=== PATIENT | male | born 1960 | race Caucasian/White ===

== ENCOUNTER 2018-09-08 08:44 | Inpatient (IN) ==
[2018-09-08] MEDS ORDERED: NS 1,000 ML IV ONE (08:56)
[2018-09-08] MEDS ORDERED: SODIUM CHLORIDE 0.9% INJ ONE (08:59)
[2018-09-08] MEDS ORDERED: PROTONIX IV ONE (08:59)
--- NOTE | 2018-09-08 08:59 | PROVIDER DOCUMENTATION ---
HPI-Abdominal Pain/GI Problem - General Chief Complaint: GI Bleed Stated Complaint: vomiting blood Time Seen by Provider: 09/08/18 08:55 Source: patient Allergies/Adverse Reactions: Patient Allergies Allergy/AdvReac Type Severity Reaction Status Date / Time No Known Allergies Allergy Verified 09/08/18 08:48 Home Medications: Home Medication List Medication Instructions Recorded Confirmed Last Taken Type NK [No Home Medications] 09/08/18 09/08/18 Unknown History - History of Present Illness-ABD Nature of Presenting Problems: 58 YOM PRESENTS WITH C/O VOMITING BLOOD X 2. HE REPORTS THE FIRST TIME IT WAS APPROX 1 CUP AND THE SECOND IT WAS MUCH LESS. HE DENIES DIZZINESS, CP, ABDOMINAL PAIN. HE DOES REPORTS ETOH INTAKE OF APROX 7-8 BEERS AND "A FEW SHOTS" PER DAY Onset/Duration: reports: 4-6 hours ago Timing: reports: intermittent Activities at Onset: reports: none Modifying Factors: improves with: nothing Associated Symptoms: reports: denies symptoms # of Vomiting Episodes: 2 Emesis Description: reports: red blood Bruising or Bleeding Gums?: No Similar Symptoms Previously?: No Recently seen or treated by another doctor?: No Review of Systems - Adult - REVIEW OF SYSTEMS - ADULT Constitutional: reports: no symptoms reported. denies: see HPI, chills, fever, fatique, night sweats, weight gain, weight loss, other Eyes: reports: no symptoms reported. denies: see HPI, discharge, dry eyes, decreased vision, blurred vision, double vision, eye pain, redness, other Ears, Nose, Mouth & Throat: reports: no symptoms reported. denies: see HPI, ear discharge, ear pain, hearing loss, tinnitus, epistaxis, sinus problem, nose pain, loose teeth, mouth/dental pain, mouth swelling, hoarseness, throat pain, throat swelling, other Cardiovascular: reports: no symptoms reported. denies: see HPI, chest pain, edema, heart murmur, irregular heart rate, orthopnea, palpitations, poor circulation, PND, syncope, other Respiratory: reports: no symptoms reported. denies: see HPI, chronic cough, cough, dyspnea on exertion, excessive sputum production, hemoptysis, pleurisy, shortness of breath, wheezing, other Gastrointestinal: reports: hematemesis, nausea, vomiting. denies: no symptoms reported, see HPI, abdominal pain, constipation, diarrhea, difficulty swallowing, frequent heartburn, poor appetite, rectal bleeding, other Genitourinary: reports: no symptoms reported. denies: see HPI, dysuria, discharge, frequency, flank pain, frequent UTI's, hematuria, hesitency, incontinence, urinary retention, urgency, other Musculoskeletal: reports: no symptoms reported. denies: see HPI, bone pain, back pain, frequent leg cramps, joint pain, joint swelling, muscle aches, muscle weakness, neck pain, other Integumentary: reports: no symptoms reported. denies: see HPI, hives, hair loss, itching, mole changes, nail changes, rash, skin sores/ulcer, skin thickening, other Neurological: reports: no symptoms reported. denies: see HPI, ataxia, dizziness/vertigo, headache/migraines, loss of balance, numbness, paresthesia, seizure, slurred speech, syncope, tremors, other Psychiatric: reports: no symptoms reported. denies: see HPI, anxiety, anti- depressant use, alcohol/drug dependence, depression, emotional problems, insomnia, panic attacks, suicidal thoughts, other Endocrine: reports: no symptoms reported. denies: see HPI, change in skin pigment, excessive sweating, goiter, cold intolerance, heat intolerance, in creased hunger, increased thirst, polyuria, other Hematologic/Lymphatic: reports: no symptoms reported. denies: see HPI, blood clots, easy bruising, low blood count, lymphedema, prolonged bleeding, swollen lymph nodes, transfusions, other Allergic/Immunologic: reports: no symptoms reported. denies: see HPI, allergic reactions, allergic rhinitis, asthma, eczema, food allergy, frequent infections, hay fever, hives, positive PPD, urticaria, other Past History - Adult - PAST MEDICAL HISTORY-ADULT Review of Records: reports: Nursing Assessment Review, Medications Reviewed, Social history reviewed & non-contributory. - SOCIAL HISTORY Substance Use: alcohol (7-8 BEERS + 3-4 SHOTS PER DAY) Physical Exam-General - PHYSICAL EXAM-ADULT Initial Vital Signs Reviewed: Yes - CONSTITUTIONAL General Appearance: appears well, alert, no apparent distress - EYES Eyes: PERRL/EOMI, pink conjunctivae - HEAD, EARS, NOSE, MOUTH & THROAT HENMT: normocephalic/atraumatic, moist mucous membranes, normal ENT inspection - NECK Neck: non-tender, full range of motion, supple - RESPIRATORY Respiratory: chest non-tender, lungs clear, normal breath sounds, no pleuratic chest pain, no respiratory distress, no accessory muscle use - CARDIOVASCULAR Cardiovascular: normal peripheral pulses, regular rate, rhythm - GASTROINTESTINAL (ABDOMEN) Abdominal Exam: normal bowel sounds, non tender, soft - LYMPHATIC Lymphatic: no adenopathy - MUSCULOSKELETAL Back Exam: normal inspection, no CVA tenderness, no vertebral tenderness Extremity: normal range of motion, non-tender, normal gait, normal inspection, no pedal edema, no calf tenderness - SKIN Integumentary: normal color, normal turgor, warm/dry - NEUROLOGIC Neurologic: grossly normal - PSYCHIATRIC Psych/Mental Status: normal mood/affect, oriented x 3 Progress - PLAN OF CARE/RESULTS Progress/Plan/Lab Results: Vital Signs - 8 hr 09/08/18 08:46 Temperature 98.4 F Pulse Rate 81 Respiratory Rate 18 Blood Pressure 177/120 O2 Sat by Pulse Oximetry 97 Orders Category Date Time Status Misc. NRSG Communication Order DIRECTED Care 09/08/18 08:56 Ordered CBC WITH ELECTRONIC DIFF [HEME] Stat Lab 09/08/18 08:56 Uncollected COMPREHENSIVE METABOLIC PANEL [CHEM] Stat Lab 09/08/18 08:56 Uncollected PROTIME WITH INR [COAG] Stat Lab 09/08/18 08:56 Uncollected PTT [COAG] Stat Lab 09/08/18 08:56 Uncollected TYPE & SCREEN [BBK] Stat Lab 09/08/18 08:56 Uncollected 0.9% Sodium Chloride Inj [Ns] 1,000 ml Med 09/08/18 08:56 Ordered IV 125 mls/hr Result Diagrams: 09/08/18 09:00 09/08/18 09:00 - REASSESSMENT Reassessment #1 Time Reassessed: 10:33 (DISCUSSED BP 180/114 P 76 WITH MD CANNON TO GIVE CLONIDINE 0.2MG PO) - CONSULTS/PCP/HOSPITALIST Notification #1 *Consult/PCP/Hospitalist*: DR. COHEN Time Discussed: 10:00 Reason/Comments: WILL PLAN FOR EGD ON TUESDAY ADMIT TO DG Consult Disposition: Admit #2 Consult: DR. RAMIREZ Time Discussed: 10:10 Reason/Comments: WILL SEE AND COORDINATE ADMIT TO DG Consult Disposition: Admit Departure - Departure Date of Disposition Decision: 09/08/18 Time of Disposition Decision: 10:20 DIAGNOSIS: Upper GI bleeding Disposition: ADMITTED INPATIENT 09 Certified Medical Emergency: Emergent Condition: Stable Referrals and Follow-Ups: None,PCP [Primary Care Provider] - - Critical Care Note This patient required my direct & personal management of CC.: No Attestation - Physician/ CONI Attestation Patient care was provided by Advanced Practice Provider:: Yes Advanced Practice Provider:: Celina Jeong Advanced Practice Provider documentation review:: The Mid-level provider documentation, treatment plan and medical decision making was reviewed by the physician who agrees with all treatment and medical decision making by the MLP. The physician spent face to face time with patient:: No Advanced Practice Provider documentation review:: Supervising physician onsite and consulted in the evaluation and care of this patient. The physician did not have a face to face encounter with the patient.
[2018-09-08 09:34] LABS: BASO# 0.02 X1000 (0.0-0.2); BASO% 0.5 % (0.0-0.8); EOS# 0.05 X1000 (0.0-0.7); EOS% 1.3 % (0.0-10.0); HEMATOCRIT 39.4 % (42.0-52.0); HEMOGLOBIN 14.1 g/dL (14.0-18.0); IMM GRAN# 0.01 X1000 (0.0-0.04); IMM GRAN% 0.3 % (0.0-0.5); LYMPH# 1.28 X1000 (1.2-3.4); LYMPH% 32.7 % (20.5-51.1); MCH 28.7 PG (27-31); MCHC 35.8 g/dL (33-37); MCV 80.2 FL (81-99); MONO# 0.26 X1000 (0.11-0.59); MONO% 6.6 % (1.7-9.3); MPV 11.6 FL (7.4-10.4); NEUT% 58.6 % (42.2-75.2); PLT 209 X1000 (130-400); RBC 4.91 XMIL (4.7-6.1); RDW 13.5 % (11.5-14.5); WBC 3.92 X1000 (4.8-10.8)
[2018-09-08] MEDS ORDERED: PROTONIX 80 MG in NS 80 ML IV SCH ×2 (09:45→20:00)
[2018-09-08 09:54] LABS: AGAP 12; ALBUMIN 4.4 g/dL (3.5-5.0); ALKALINE PHOSPHATASE 57 U/L (32-122); BUN 11 mg/dL (8-22); CALCIUM 8.9 mg/dL (8.8-10.2); CHLORIDE 107 mmol/L (98-107); COSMO 285; CREATININE 0.9 mg/dL (0.7-1.2); ESTIMATED GFR > 60; GLUCOSE 103 mg/dL (70-104); GOT 29 U/L (10-34); GPT 22 U/L (10-44); POTASSIUM 3.6 mmol/L (3.5-5.1); SODIUM 143 mmol/L (136-145); TCO2 24 mmol/L (25-35); TOTAL PROTEIN 7.3 g/dL (6.3-8.3)
[2018-09-08 10:11] LABS: INR 0.93; PROTIME 12.9 Seconds (11.0-16.0); PTT 26.8 Seconds (22.3-41.8)
[2018-09-08] MEDS ORDERED: CATAPRES PO ONE (10:33)
[2018-09-08] MEDS ORDERED: ZOFRAN IV PRN (11:50)
[2018-09-08 13:19] LABS: HEMATOCRIT 38.4 % (42.0-52.0); HEMOGLOBIN 13.8 g/dL (14.0-18.0)
[2018-09-08] MEDS ORDERED: APRESOLINE IV PRN (14:24)
[2018-09-08] MEDS ORDERED: ATARAX PO PRN (14:26)
[2018-09-08] MEDS ORDERED: BENTYL PO PRN (14:26)
[2018-09-08] MEDS ORDERED: M.V.I.-12 10 ML, FOLIC ACID 1 MG, MAGNESIUM SULFATE 1 GM, THIAMINE 100 MG in NS 1,000 ML IV ONE ×2 (16:00→17:00)
[2018-09-08] MEDS: LIBRIUM PO SCH ×2 (16:45→20:08)
[2018-09-08 18:00] LABS: HEMATOCRIT 39.1 % (42.0-52.0); HEMOGLOBIN 14.1 g/dL (14.0-18.0)
--- NOTE | 2018-09-08 19:10 | HISTORY AND PHYSICAL ---
He has no primary care physician. CHIEF COMPLAINT: Vomiting blood. HISTORY OF PRESENT ILLNESS: This is a 58-year-old gentleman who presents to the emergency room complaining of vomiting blood x2. He states 1st time it was about a cup, less the 2nd time.. He denies any prior episodes. He did state that there was some food along with the blood. He states that he has had an EGD greater than 10 years ago and he stated "they found something down there and they gave me a pill I couldn't afford." He states that for as long as he can remember he has difficulty swallowing solid foods, at times he swallows without difficulty but he feels like it gets stuck in his stomach so he gags his self until he vomits. He does drink alcohol. He states he drinks 7 to 8 beers a day along with 3 to 5 shots, sometimes more. His last drink was last night prior to going to bed. He has had no further vomiting. He denies any abdominal pain, fevers, chills. He denies any black or bloody stools. PAST MEDICAL HISTORY: Dysphagia. PAST SURGICAL HISTORY: Denies . SOCIAL HISTORY: He smokes about a half a pack a day, he drinks at least a 6 pack a day with 3-5 shots sometimes more. ALLERGIES: No known drug allergies. HOME MEDICATIONS: None. REVIEW OF SYSTEMS: Discussed with patient with pertinent positives stated in the HPI. He denied any syncope, dizziness, chest pain, palpitations, any abdominal pain, diarrhea, constipation, black or bloody stools, any shortness of breath, cough, fever, chills, night sweats, recent weight loss or weight gain, hematuria, dysuria, frequency, urgency. PHYSICAL EXAMINATION: GENERAL: This is a 58-year-old gentleman who is lying in the stretcher in the emergency room in no distress. VITAL SIGNS: Blood pressure is 150/94, respirations are 18, temperature is 98.6 degrees with a heart rate of 64, room air saturations 96-98%. HEENT: Pupils equal, round, react to light. EOMs are intact, sclerae anicteric. Head is normocephalic, atraumatic. Mucous membranes are moist. NECK: Supple. Trachea midline. He has no JVD. CARDIOVASCULAR: Regular rate and rhythm. S1, S2 appreciated. No murmur. He has no lower extremity edema. Calves are nontender bilateral palpation. Peripheral pulses are palpable x4 extremities. PULMONARY: Breath sounds are clear with no increased work of breathing noted. Chest rises and falls symmetric with respiration. Chest wall is nontender to palpation. GASTROINTESTINAL: Abdomen soft, nontender, nondistended. Bowel sounds in all 4 quadrants. GENITOURINARY: He has no CVA or suprapubic tenderness. SKIN: Warm and dry with good turgor. NEUROLOGIC: He is alert, oriented x3. LABS: WBC is 3.9 with a hemoglobin of 14.1, hematocrit 39.4 and platelets of 209,000. INR 0.93, sodium 143, potassium 3.6, BUN 11, creatinine 0.9 with a glucose of 103. ASSESSMENT AND PLAN: 1. Hematemesis. 2. Hypertension. 3. History of dysphagia with recurrent vomiting. 4. History of alcohol use and abuse. Will monitor for any signs of alcohol withdrawal starting a low-dose Librium taper. 6. Will consult Gastroenterology. Deep vein thrombosis prophylaxis and gastrointestinal prophylaxis. Will repeat a hemoglobin and hematocrit, if hemoglobin and hematocrit is stable he will be admitted to [facility]. He will be NPO. CBC and CMP in the morning hemoglobin and hematocrit every 6 hours. IV hydration. Protonix drip was started emergency room, this will be continued. Hydralazine q.6 hours p.r.n. for a systolic blood pressure greater than 180, For DVT prophylaxis will use SCDs, for GI prophylaxis as stated above he is on Protonix. Further treatments pending hospital course. Dictated by NATHALIE Ulrich for Isaak Oneal MD cc: NATHALIE Ulrich MD [facility]
[2018-09-08] MEDS: PROTONIX 80 MG in NS 80 ML IV SCH (20:07)
--- NOTE | 2018-09-08 22:28 | HISTORY AND PHYSICAL ---
ADDENDUM: Patient seen examined by myself. Full note dictated and discussed with nurse practitioner. Patient is seen in the ER. Has a known history of alcoholism. It sounds like he has had peptic ulcer disease in the past. He presented to the hospital with nausea, vomiting. Stated that he felt as though he had some blood in his emesis. He has been watched in the ER for several hours. His H and H has been stable over the past 4 hours. Therefore, we will admit him upstairs. Place him on a Protonix drip. We will continue to follow. Discussed with patient the perils of smoking. Currently, he denies any alcohol withdrawal symptoms. Discussed that he certainly needs to stop drinking as well. cc: Isaak Oneal MD
[2018-09-09 00:48] LABS: HEMATOCRIT 38.8 % (42.0-52.0)
[2018-09-09] MEDS: LIBRIUM PO SCH ×2 (05:43→09:13)
[2018-09-09] MEDS: PROTONIX 80 MG in NS 80 ML IV SCH (05:44)
[2018-09-09 06:25] LABS: MCH 28.9 PG (27-31); MCHC 35.9 g/dL (33-37); MCV 80.4 FL (81-99); MPV 11.2 FL (7.4-10.4); RBC 4.85 XMIL (4.7-6.1); RDW 13.5 % (11.5-14.5); WBC 3.23 X1000 (4.8-10.8)
[2018-09-09 07:00] LABS: AGAP 12; ALBUMIN 3.8 g/dL (3.5-5.0); ALKALINE PHOSPHATASE 52 U/L (32-122); BUN 8 mg/dL (8-22); CALCIUM 8.7 mg/dL (8.8-10.2); CHLORIDE 105 mmol/L (98-107); COSMO 277; CREATININE 0.8 mg/dL (0.7-1.2); ESTIMATED GFR > 60; GLUCOSE 91 mg/dL (70-104); GOT 24 U/L (10-34); GPT 19 U/L (10-44); POTASSIUM 3.4 mmol/L (3.5-5.1); SODIUM 140 mmol/L (136-145); TCO2 23 mmol/L (25-35); TOTAL PROTEIN 6.5 g/dL (6.3-8.3)
[2018-09-09 12:18] VITALS: BP 143/96
--- NOTE | 2018-09-10 10:02 | DISCHARGE SUMMARY ---
ADMISSION DATE: 09/08/2018 DISCHARGE DATE: 09/09/2018 DISCHARGE DIAGNOSES: 1. Nausea and vomiting, resolved. 2. Hematemesis, resolved. 3. Chronic alcohol use and abuse. 4. Recent NSAID use, which is likely the cause of his hematemesis. 5. Hypertension. 6. Chronic tobacco abuse. CONSULTATIONS: None. PROCEDURES: None. BRIEF HOSPITAL COURSE: The patient is a 58-year-old male who presented to the hospital, treated in the usual fashion, placed n.p.o. for the first 18 to 24 hours, while he was on a Protonix drip. He has had no further hematemesis. He has had no further drop in his hemoglobin and hematocrit. He tolerated a soft diet without any difficulty. DISPOSITION: Patient will be discharged home. Discussed with him that he needs to avoid all NSAIDs, alcohol, anti-inflammatories, cigarette smoke. He needs to eat a bland diet for the next few days. He needs to avoid chips, etc. He does not need to eat for 2 hours prior to bed, etc. Discussed with patient he will be discharged home on Prilosec daily for the next 4 weeks and on losartan 25 mg daily until he follows up with his primary care of choice. TIME SPENT: Greater than 30 minutes was spent in total care. cc: Isaak Oneal MD
[2018-09-11] MEDS ORDERED: PROTONIX IV SCH (09:37)
== END 2018-09-09 13:45 | disposition home or self-care (01) | DRG 379 ==
LOC: P.ED 08:44 → 4N 14:48 → P.MEDSURG 15:37
PROVIDERS: ATTEND Family Medicine
CPT/HCPCS: 80053; 85014; 85018; 85025; 85027; 85610; 85730; 86850; 86900; 86901; 96361; 96365; 96366; 96375; 99285; A9270; C9113; J0360; J3411; J3475; J7030; S0164